=== PATIENT | female | born 1950 | race Caucasian/White ===

== ENCOUNTER 2016-11-21 14:05 | Outpatient (CLI) | payer OTHER ==
[2016-11-21 14:59] LABS: eGFR (African) > 60; eGFR (Non-African) > 60
== END 2016-11-21 14:06 ==
LOC: LAB 14:05
PROVIDERS: ATTEND Family Medicine
DX: E78.2 Mixed hyperlipidemia (principal)
CPT/HCPCS: 36415; 80053; 80061

== ENCOUNTER 2016-11-30 09:32 | Outpatient (CLI) | payer OTHER | END 2016-11-30 09:33 | LOC: RAD 09:32 | PROVIDERS: ATTEND Family Medicine | DX: Z78.0 Asymptomatic menopausal state (principal) | CPT/HCPCS: 77080 ==

== ENCOUNTER 2017-11-26 11:02 | Outpatient (CLI) | payer OTHER ==
[2017-11-26 12:52] LABS: eGFR (African) > 60; eGFR (Non-African) > 60
== END 2017-11-26 11:04 ==
LOC: LAB 11:02
PROVIDERS: ATTEND Family Medicine
DX: E78.2 Mixed hyperlipidemia (principal)
CPT/HCPCS: 36415; 80053; 80061

== ENCOUNTER 2018-12-16 14:12 | Outpatient (CLI) | payer OTHER ==
[2018-12-16 14:55] LABS: eGFR (Non-African) > 60
== END 2018-12-16 14:14 ==
LOC: LAB 14:12
PROVIDERS: ATTEND Family Medicine
DX: Z13.6 Encounter for screening for cardiovascular disorders (principal); E78.2 Mixed hyperlipidemia
CPT/HCPCS: 36415; 80053; 80061

== ENCOUNTER 2019-02-09 08:31 | Outpatient (CLI) | payer OTHER ==
--- NOTE | 2019-02-09 11:03 | Diagnostic Imaging Report ---
TYRON HINTON [facility] [address] [id number] Report Submission Date: Feb 09, 2019 10:58:43 AM CDT Patient Study Name: JONN CHRISTIE Date: Feb 09, 2019 12:00:00 AM CDT Modality Type: DEXA\OT Gender: F Description: : 46 Institution: [facility] Physician: TYRON HINTON Examination: Bone density History: Assess bone mineralization Comparison exams: None available Technique: DEXA protocol Findings: Average bone mineral density from L1 through L4: 1.309 grams cm2. T score: 1.1 Average bone mineral density of the left femoral neck: 1.043 grams cm2. T score: 0.0 Average bone mineral density of the right femoral neck: 1.190 grams cm2. T score: 1.1 Impression: Normal lumbar spine and hip mineralization for age Electronically signed on Feb 09, 2019 10:58:43 AM CDT by: Suraj COHEN
== END 2019-02-09 08:35 ==
LOC: RAD 08:31
PROVIDERS: ATTEND Family Medicine
DX: Z78.0 Asymptomatic menopausal state (principal)
CPT/HCPCS: 77080